=== PATIENT | male | born 1975 | race Caucasian/White ===

== ENCOUNTER 2017-08-01 11:29 | Emergency (ER) | payer SELFPAY ==
[~2017-08-01] VITALS: Ht 177.8 cm; Wt 83.1 kg
[2017-08-01] MEDS ORDERED: INSULIN (11:49)
[2017-08-01] MEDS ORDERED: SODIUM CHLORIDE 0.9% 1,000 ML IV ONE (12:04)
[2017-08-01] MEDS ORDERED: MORPHINE SULFATE 4 MG/ML, 1ML ONE (12:23)
[2017-08-01] MEDS ORDERED: ONDANSETRON 2MG/ML, 2ML ONE (12:24)
[2017-08-01] MEDS ORDERED: DIPH,PERTUSS(ACELL),TET VAC/PF 0.5 ML IM-VACC ONE ×2 (12:24→12:30)
[2017-08-01] MEDS ORDERED: ONDANSETRON 2MG/ML, 2ML IVPush ONE (12:30)
[2017-08-01] MEDS ORDERED: MORPHINE SULFATE 4 MG/ML, 1ML IVPush PRN (12:30)
[2017-08-01] MEDS ORDERED: SODIUM CHLORIDE 0.9% 1,000ML IVBOLUS ONE (12:30)
[2017-08-01] MEDS ORDERED: AMPICILLIN/SULBACTAM 3 GM in SODIUM CHLORIDE 0.9% 100 ML IVPB ONE (12:30)
[2017-08-01 12:36] LABS: HEMATOCRIT 40.4 % (39.2-51.8); HEMOGLOBIN 13.8 g/dL (13.7-18.0); WHITE BLOOD COUNT 8.3 x10^3/uL (3.4-10)
[2017-08-01 12:48] LABS: BLOOD UREA NITROGEN 7 mg/dL (7-18)
[2017-08-01 13:41] VITALS: BP 126/72
== END 2017-08-01 13:46 | disposition home or self-care (01) ==
LOC: ED 12:41
DX: L03.115 Cellulitis of right lower limb (principal); E11.9 Type 2 diabetes mellitus without complications; Z79.4 Long term (current) use of insulin
CPT/HCPCS: 36415; 73630; 80048; 82040; 83605; 84145; 85025; 87040; 90471; 90715; 96365; 96375; 99285; J0295; J2405; J7030

== ENCOUNTER 2017-08-03 09:38 | Emergency (ER) | payer SELFPAY ==
[~2017-08-03] VITALS: Ht 177.8 cm; Wt 83.0 kg
[~2017-08-03 09:38] MED LIST: INSULIN
[2017-08-03 09:47] VITALS: BP 134/84
== END 2017-08-03 11:11 | disposition home or self-care (01) ==
LOC: ED 11:02
DX: Z48.01 Encounter for change or removal of surgical wound dressing (principal); E11.9 Type 2 diabetes mellitus without complications
CPT/HCPCS: 99281